=== PATIENT | female | born 1990 | race Caucasian/White ===

== ENCOUNTER 2019-04-01 08:57 | Emergency (ER) | payer BC, MEDICAID, OTHER ==
[2019-04-01] MEDS ORDERED: Ondansetron 4 MG Tab.DIS PO ONE (09:16)
--- NOTE | 2019-04-01 09:16 | EDM.PDOC ---
ED HPI GENERAL MEDICAL PROBLEM - General Stated Complaint: MIGRAINE Time Seen by Provider: 04/01/19 09:16 Source of Information: Reports: Patient History Limitations: Reports: No Limitations - History of Present Illness INITIAL COMMENTS - FREE TEXT/NARRATIVE: Patient has had migraines before her during her pregnancies. She did try Tylenol and caffeine. We did give her Zofran. We also gave her Percocet. She will use this sparingly. The migraine is behind her right eye. She did have to go off of her migraine medications when she got . Some nausea. Photophobia is noted. 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 Headache Pain Score (Numeric/FACES): 7 - Related Data Allergies Allergy/AdvReac Type Severity Reaction Status Date / Time amoxicillin Allergy Rash Verified 04/01/19 09:36 Penicillins Allergy Rash Verified 02/12/16 05:16 Home Meds: Home Meds ALPRAZolam [Xanax] 0.5 mg PO TID PRN 10/05/15 [History] Desvenlafaxine Succinate [Pristiq ER] 100 mg PO DAILY 04/01/19 [History] Labetalol HCl [Labetalol] 1 tab DAILY 04/01/19 [History] busPIRone HCl [busPIRone] 45 mg PO DAILY 04/01/19 [History] oxyCODONE HCl/Acetaminophen [Percocet 5-325 mg Tablet] 1 - 2 each PO Q4HR PRN # 10 tablet 04/01/19 [Rx] Past Medical History Cardiovascular History: Reports: Hypertension Respiratory History: Reports: None Genitourinary History: Reports: Renal Calculus, UTI, 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: Musculoskeletal History: Reports: Fracture Neurological History: Reports: Migraines Psychiatric History: Reports: Anxiety, Depression - Past Surgical History HEENT Surgical History: Reports: Oral Surgery Social & Family History - Family History Cardiac: Reports: [place] Other Cardiac Family History: FATHER HAD [place] 2003 Respiratory: Reports: COPD Other Respiratory Family Hisory: FATHER Neurological: Reports: [place] Other Neurological Family History: FATHER - Living Situation & Occupation Living situation: Reports: Single Occupation: Unemployed ED ROS GENERAL - Review of Systems Review Of Systems: ROS reveals no pertinent complaints other than HPI. - Physical Exam Exam: See Below Exam Limited By: No Limitations General Appearance: Alert Head Exam: Atraumatic Neck: Normal Inspection, Supple Respiratory/Chest: No Respiratory Distress, Lungs Clear, Normal Breath Sounds Cardiovascular: Normal Peripheral Pulses, Regular Rate, Rhythm, No Edema, No Gallop, No JVD, No Murmur, No Rub Psychiatric: Normal Affect Course - Vital Signs Last Recorded V/S: Last Vital Signs Temp 37.4 C 04/01/19 08:57 Pulse 96 04/01/19 08:57 Resp 16 04/01/19 08:57 BP 150/93 H 04/01/19 08:57 Pulse Ox 96 04/01/19 08:57 - Orders/Labs/Meds Meds: Medications Discontinued Medications Generic Name Dose Route Start Last Admin Trade Name Freq PRN Reason Stop Dose Admin Ondansetron HCl 8 mg 04/01/19 09:16 04/01/19 09:25 Zofran Odt PO 04/01/19 09:17 8 mg ONETIME ONE Administration Oxycodone/Acetaminophen 1 packet 04/01/19 09:32 04/01/19 09:40 Take Home: Acetamin/Oxycodon 325-5 Mg, 5 Pack PO 04/01/19 09:33 1 packet ONETIME ONE Administration Departure - Departure Time of Disposition: 09:28 Disposition: Home, Self-Care 01 Condition: Fair Clinical Impression: Migraine - Discharge Information *PRESCRIPTION DRUG MONITORING PROGRAM REVIEWED*: Yes *COPY OF PRESCRIPTION DRUG MONITORING REPORT IN PATIENT MONICA: No Prescriptions: oxyCODONE HCl/Acetaminophen [Percocet 5-325 mg Tablet] 1 - 2 each PO Q4HR PRN # 10 tablet PRN Reason: Pain Instructions: Migraine Headache, [id number] Referrals: Chas Snowden NP [Primary Care Provider] - Forms: ED Department Discharge Additional Instructions: Drink plenty of fluids. Get plenty of rest.
[2019-04-01] MEDS ORDERED: Take Home: Acetaminophen/oxyCODONE 325-5 MG, 5 Tab Pack PO ONE (09:32)
[2019-04-01 09:50] VITALS: BP 150/93
== END 2019-04-01 09:42 | disposition home or self-care (01) ==
LOC: VM.ED 08:57
DX: G43.909 Migraine, unspecified, not intractable, without status migrainosus (principal); I10 Essential (primary) hypertension; F41.9 Anxiety disorder, unspecified; F32.9 Major depressive disorder, single episode, unspecified; Z88.0 Allergy status to penicillin; Z88.1 Allergy status to other antibiotic agents; Z79.899 Other long term (current) drug therapy
CPT/HCPCS: 99283; A9270-GY

== ENCOUNTER 2019-08-18 16:59 | Emergency (ER) | payer MEDICAID ==
[2019-08-18] MEDS ORDERED: Sodium Chloride 0.9% 10 ML Syringe FLUSH PRN (17:25)
[2019-08-18] MEDS ORDERED: diphenhydrAMINE 50 MG/ML SDV IVPUSH ONE (17:26)
[2019-08-18] MEDS ORDERED: Metoclopramide 10 MG/2 ML SDV IVPUSH ONE (17:26)
[2019-08-18 17:33] VITALS: PULSE 92
--- NOTE | 2019-08-18 17:36 | EDM.PDOC ---
ED HPI GENERAL MEDICAL PROBLEM - General Stated Complaint: MIGRAINE Time Seen by Provider: 08/18/19 17:00 Source of Information: Reports: Patient History Limitations: Reports: No Limitations - History of Present Illness INITIAL COMMENTS - FREE TEXT/NARRATIVE: Pt. presents to ER with complaints of headache. She is currently 32 weeks gestation. . She states that she has had a frontal headache for approx. 3 days. She has a history of migraine and states that the discomfort is similar. She states that she has been taking imitrex and benadryl for the headache but states that this has not helped. According to her chart, she has had issues with PIH and is currently on labetolol 100mg BID and mag oxide 400mg once daily. Her BP during her last clinic visit (08/10) was 125/72. Her urine dip was protein negative. Pt. denies any chest pain or shortness of breath. No increased peripheral edema. She has vomited today. No vision changes. No increased peripheral edema. Onset Date: 08/15/19 Location: Reports: Head Quality: Reports: Ache, Throbbing Associated Symptoms: Reports: Nausea/Vomiting Headache Pain Score (Numeric/FACES): 7 - Related Data Allergies Allergy/AdvReac Type Severity Reaction Status Date / Time amoxicillin Allergy Rash Verified 08/18/19 17:53 Penicillins Allergy Rash Verified 08/18/19 17:53 Home Meds: Home Meds ALPRAZolam [Xanax] 0.5 mg PO TID PRN 10/05/15 [History] Desvenlafaxine Succinate [Pristiq ER] 50 mg PO DAILY 04/01/19 [History] Labetalol HCl [Labetalol] 1 tab PO BID 04/01/19 [History] Aspirin [Halfprin] 81 mg PO DAILY 08/18/19 [History] Magnesium Oxide 400 mg PO DAILY 08/18/19 [History] Pnv No.95/Ferrous Fum/Folic AC [ Caplet] 1 tab PO DAILY 08/18/19 [ History] SUMAtriptan [Imitrex] 25 mg PO Q2H 08/18/19 [History] diphenhydrAMINE [Benadryl] 25 mg PO ONETIME 08/18/19 [History] Past Medical History Cardiovascular History: Reports: Hypertension Respiratory History: Reports: None Genitourinary History: Reports: Renal Calculus, UTI, 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: Musculoskeletal History: Reports: Fracture Neurological History: Reports: Migraines Other Neuro History: gets Botox injections Psychiatric History: Reports: Anxiety, Depression - Past Surgical History HEENT Surgical History: Reports: Oral Surgery Social & Family History - Family History Cardiac: Reports: [place] Other Cardiac Family History: FATHER HAD [place] 2003 Respiratory: Reports: COPD Other Respiratory Family Hisory: FATHER Neurological: Reports: MS Other Neurological Family History: FATHER - Living Situation & Occupation Living situation: Reports: Single Occupation: Unemployed ED ROS GENERAL - Review of Systems Review Of Systems: See Below Constitutional: Reports: No Symptoms Respiratory: Reports: No Symptoms Cardiovascular: Reports: Blood Pressure Problem. Denies: Dyspnea on Exertion, Lightheadedness, Orthopnea, Palpitations, PND, Syncope Endocrine: Reports: No Symptoms GI/Abdominal: Reports: No Symptoms : Reports: No Symptoms Musculoskeletal: Reports: No Symptoms Skin: Reports: No Symptoms Neurological: Reports: Headache. Denies: Confusion, Dizziness, Numbness, Paresthesia, Tremors, Change in Speech, Gait Disturbance Psychiatric: Reports: No Symptoms Hematologic/Lymphatic: Reports: No Symptoms Immunologic: Reports: No Symptoms Free Text/Narrative/Comment: 32 weeks gestation ED EXAM, GENERAL - Physical Exam Exam: See Below Exam Limited By: No Limitations General Appearance: Alert, WD/WN, No Apparent Distress Eye Exam: Bilateral Eye: EOMI, Normal Fundi, Normal Inspection, PERRL Nose: Normal Inspection, No Blood Throat/Mouth: Normal Inspection, Normal Lips, Normal Oropharynx, Normal Voice, No Airway Compromise Head: Atraumatic, Normocephalic Neck: Normal Inspection, Supple, Non-Tender, Full Range of Motion Respiratory/Chest: No Respiratory Distress, Lungs Clear, Normal Breath Sounds, No Accessory Muscle Use, Chest Non-Tender Cardiovascular: Normal Peripheral Pulses, Regular Rate, Rhythm, No Edema, No Gallop, No JVD, No Murmur GI/Abdominal: Normal Bowel Sounds, Soft, Non-Tender, No Organomegaly, No Distention, No Mass (Female) Exam: Deferred Rectal (Female) Exam: Deferred Back Exam: Normal Inspection, Full Range of Motion Extremities: Normal Inspection, Normal Range of Motion, No Pedal Edema, Normal Capillary Refill Neurological: Alert, Oriented, CN II-XII Intact, Normal Cognition, Normal Gait, Normal Reflexes, No Motor/Sensory Deficits Psychiatric: Normal Affect, Normal Mood Skin Exam: Warm, Dry, Intact, Normal Color, No Rash Lymphatic: No Adenopathy Course - Vital Signs Last Recorded V/S: Last Vital Signs Temp 35.8 C 08/18/19 17:11 Pulse 92 08/18/19 17:11 Resp 18 08/18/19 17:11 BP 141/82 H 08/18/19 17:59 Pulse Ox 98 08/18/19 17:11 - Orders/Labs/Meds Orders: Active Orders 24 hr Category Date Time Status EKG Documentation Completion [RC] STAT Care 08/18/19 17:19 Inactive Heart Tones [RC] ASDIRECTED Care 08/18/19 17:20 Active Sodium Chloride 0.9% [Saline Flush] Med 08/18/19 17:25 Active 10 ml FLUSH ASDIRECTED PRN Peripheral IV Insertion Adult [OM.PC] Routine Oth 08/18/19 17:25 Ordered Medication Orders Sodium Chloride (Saline Flush) 10 ml FLUSH ASDIRECTED PRN PRN Reason: Keep Vein Open Last Admin: 08/18/19 17:41 Dose: 10 ml Labs: Laboratory Tests 08/18/19 08/18/19 08/18/19 Range/Units 17:15 17:30 17:30 WBC 8.5 (4.0-10.0) x10^3/uL RBC 3.63 L (4.00-5.50) x10^6/uL Hgb 11.8 L (12.0-16.0) g/dL Hct 34.0 (33.0-47.0) % MCV 93.7 H (78.0-93.0) fL MCH 32.5 H (26.0-32.0) pg MCHC 34.7 (32.0-36.0) g/dL RDW Coeff of Robert 12.7 (10.0-15.0) % Plt Count 229 (130-400) x10^3/uL Neut % (Auto) 76.0 (50.0-80.0) % Lymph % (Auto) 16.7 L (25.0-50.0) % [place] % (Auto) 6.5 (2.0-11.0) % Eos % (Auto) 0.4 (0.0-4.0) % Baso % (Auto) 0.4 (0.2-1.2) % PT 9.4 L (10.0-12.8) SEC INR 0.8 L (2.0-3.5) Sodium (69-191) mmol/L Potassium (1.5-9.9) mmol/L Chloride (54-184) mmol/L Carbon Dioxide (21-32) mmol/L Anion Gap (10-20) mmol/L BUN (7-18) mg/dL Creatinine (0.55-1.02) mg/dL Est Cr Clr Drug Dosing mL/min Estimated GFR (MDRD) Glucose (74-106) mg/dL Calcium (8.5-10.1) mg/dL Corrected Calcium (8.5-10.1) mg/dL Phosphorus (2.6-4.7) mg/dL Magnesium (1.8-2.4) mg/dL Total Bilirubin (0.2-1.0) mg/dL AST (15-37) U/L ALT (14-59) U/L Alkaline Phosphatase (46-116) U/L Lactate Dehydrogenase (81-234) U/L Troponin I (<=0.056) ng/mL C-Reactive Protein (<=0.9) mg/dL NT-Pro-B Natriuret Pep (<=125) pg/mL Total Protein (6.4-8.2) g/dL Albumin (3.4-5.0) g/dL Globulin Albumin/Globulin Ratio Urine Color Yellow (YELLOW) Urine Appearance Slightly cloudy H (CLEAR) Urine pH 7.0 (5.0-8.0) Ur Specific [place] 1.015 Urine Protein Negative (NEGATIVE) mg/dL Urine Glucose (UA) Negative (NEGATIVE) mg/dL Urine Ketones Negative (NEGATIVE) mg/dL Urine Occult Blood Negative (NEGATIVE) Urine Nitrite Negative (NEGATIVE) Urine Bilirubin Negative (NEGATIVE) Urine Urobilinogen 1.0 (0.2) EU/dL Ur Leukocyte Esterase Small H (NEGATIVE) Urine RBC 0-5 (NOT SEEN) /HPF Urine WBC 5-10 H (NOT SEEN) /HPF Ur Squamous Epith Cells Few H (NEGATIVE) /HPF Urine Bacteria Rare (NEGATIVE) /HPF Urine Mucus Occasional H (NEGATIVE) /LPF 11/02/19 Range/Units 17:30 WBC (4.0-10.0) x10^3/uL RBC (4.00-5.50) x10^6/uL Hgb (12.0-16.0) g/dL Hct (33.0-47.0) % MCV (78.0-93.0) fL MCH (26.0-32.0) pg MCHC (32.0-36.0) g/dL RDW Coeff of Robert (10.0-15.0) % Plt Count (130-400) x10^3/uL Neut % (Auto) (50.0-80.0) % Lymph % (Auto) (25.0-50.0) % [place] % (Auto) (2.0-11.0) % Eos % (Auto) (0.0-4.0) % Baso % (Auto) (0.2-1.2) % PT (10.0-12.8) SEC INR (2.0-3.5) Sodium 141 (69-191) mmol/L Potassium 3.9 (1.5-9.9) mmol/L Chloride 107 (54-184) mmol/L Carbon Dioxide 21 (21-32) mmol/L Anion Gap 16.9 (10-20) mmol/L BUN 5 L (7-18) mg/dL Creatinine 0.6 (0.55-1.02) mg/dL Est Cr Clr Drug Dosing 125.61 mL/min Estimated GFR (MDRD) > 60 Glucose 103 (74-106) mg/dL Calcium 8.1 L (8.5-10.1) mg/dL Corrected Calcium 9.30 (8.5-10.1) mg/dL Phosphorus 3.6 (2.6-4.7) mg/dL Magnesium 1.7 L (1.8-2.4) mg/dL Total Bilirubin 0.5 (0.2-1.0) mg/dL AST 19 (15-37) U/L ALT 18 (14-59) U/L Alkaline Phosphatase 123 H (46-116) U/L Lactate Dehydrogenase 188 (81-234) U/L Troponin I < 0.017 (<=0.056) ng/mL C-Reactive Protein < 0.2 (<=0.9) mg/dL NT-Pro-B Natriuret Pep 32 (<=125) pg/mL Total Protein 6.1 L (6.4-8.2) g/dL Albumin 2.5 L (3.4-5.0) g/dL Globulin 3.6 Albumin/Globulin Ratio 0.69 Urine Color (YELLOW) Urine Appearance (CLEAR) Urine pH (5.0-8.0) Ur Specific [place] Urine Protein (NEGATIVE) mg/dL Urine Glucose (UA) (NEGATIVE) mg/dL Urine Ketones (NEGATIVE) mg/dL Urine Occult Blood (NEGATIVE) Urine Nitrite (NEGATIVE) Urine Bilirubin (NEGATIVE) Urine Urobilinogen (0.2) EU/dL Ur Leukocyte Esterase (NEGATIVE) Urine RBC (NOT SEEN) /HPF Urine WBC (NOT SEEN) /HPF Ur Squamous Epith Cells (NEGATIVE) /HPF Urine Bacteria (NEGATIVE) /HPF Urine Mucus (NEGATIVE) /LPF Meds: Medications Generic Name Dose Route Start Last Admin Trade Name Freq PRN Reason Stop Dose Admin Sodium Chloride 10 ml 08/18/19 17:25 08/18/19 17:41 Saline Flush FLUSH 10 ml ASDIRECTED PRN Administration Keep Vein Open Discontinued Medications Generic Name Dose Route Start Last Admin Trade Name Freq PRN Reason Stop Dose Admin Diphenhydramine HCl 50 mg 08/18/19 17:26 08/18/19 17:41 Benadryl IVPUSH 08/18/19 17:27 50 mg ONETIME ONE Administration Sodium Chloride 1,000 mls @ 1,000 mls/hr 08/18/19 17:43 08/18/19 17:52 Normal Saline IV 08/18/19 18:42 1,000 mls/hr .BOLUS ONE Administration Metoclopramide HCl 5 mg 08/18/19 17:26 08/18/19 17:41 Reglan IVPUSH 08/18/19 17:27 5 mg ONETIME ONE Administration Departure - Departure Time of Disposition: 18:43 Disposition: Home, Self-Care 01 Clinical Impression: Migraine, induced hypertension - Discharge Information Instructions: Low-Sodium Eating Plan, Hypertension During Referrals: Chas Snowden NP [Primary Care Provider] - Forms: ED Department Discharge Additional Instructions: Home to rest. You need to be on strict bed rest. I will give your a note for work. Return to ER tomorrow for a recheck of your blood pressure. Continue with your current medications. Follow-up with your OB doctor early next week. Minimize intake of sodium/salty foods. Drink plenty of fluids. If you have worsening headache, blurred vision, vomiting, chest pain, shortness of breath, or other worrisome signs/symptoms, please return to ER. - Problem List Review Problem List Initiated/Reviewed/Updated: Yes - My Orders Last 24 Hours: My Active Orders 08/18/19 17:19 EKG Documentation Completion [RC] STAT 08/18/19 17:20 Heart Tones [RC] ASDIRECTED 08/18/19 17:25 Sodium Chloride 0.9% [Saline Flush] 10 ml FLUSH ASDIRECTED PRN Peripheral IV Insertion Adult [OM.PC] Routine - Assessment/Plan Last 24 Hours: My Active Orders 08/18/19 17:19 EKG Documentation Completion [RC] STAT 08/18/19 17:20 Heart Tones [RC] ASDIRECTED 08/18/19 17:25 Sodium Chloride 0.9% [Saline Flush] 10 ml FLUSH ASDIRECTED PRN Peripheral IV Insertion Adult [OM.PC] Routine Plan: IV access established. Pt. was given a liter of NS. She was given benadryl 50mg IV and reglan 10mg IV. She reported significant improvement in her symptoms. Pain was down to a 2-3 at time of discharge. Pt. had no proteinuria. She did have small LE in her urine, but is not symptomatic, so we will defer treating this. Pt. platelets, kidney function, LFTs, LDH and electrolytes are all within normal limits. Her BP was down to 140s over 80s at discharge. I spoke with Dr. Hillman, [facility] at [facility]. She advised bedrest and watchful waiting at this time. Pt. will return to ER tomorrow for repeat blood pressure check. No changes to medications or dosages at this time. Discussed bedrest with the patient. She can be up to the bathroom but no other activity. This was addressed in a note for her work. She was advised to return to ER if she developed worsening headache, vision changes, chest pain, abdominal pain, shortness of breath, or seizure activity. She should follow-up with her [employer] early next week. She was given a handout on DASH eating.
[2019-08-18] MEDS ORDERED: Sodium Chloride 0.9% 1,000 ML IV ONE (17:43)
[2019-08-18 17:59] VITALS: BP 141/82
[2019-08-18 18:07] LABS: CHLORIDE,CL 107 mmol/L (54-184); SODIUM,NA 141 mmol/L (69-191)
[2019-08-18 18:08] LABS: ANION GAP 16.9 mmol/L (10-20)
[2019-08-19] MEDS ORDERED: Labetalol 20 MG/4 ML Syringe IVPUSH ONE (16:42)
[2019-08-19] MEDS ORDERED: Sodium Chloride 0.9% 10 ML Syringe FLUSH PRN (16:42)
== END 2019-08-18 18:52 | disposition home or self-care (01) ==
LOC: VM.ED 16:59
DX: O99.353 Diseases of the nervous system complicating pregnancy, third trimester (principal); G43.909 Migraine, unspecified, not intractable, without status migrainosus; O16.3 Unspecified maternal hypertension, third trimester; O99.343 Other mental disorders complicating pregnancy, third trimester; F41.9 Anxiety disorder, unspecified; F32.9 Major depressive disorder, single episode, unspecified; Z88.0 Allergy status to penicillin; Z79.82 Long term (current) use of aspirin; Z79.899 Other long term (current) drug therapy; Z3A.32 32 weeks gestation of pregnancy
CPT/HCPCS: 36415; 80053; 81001; 83615; 83735; 83880; 84100; 84484; 85025; 85610; 86140; 96360; 99284-25; J1200; J2765; J7030

== ENCOUNTER 2019-08-19 16:20 | Emergency (ER) | payer MEDICAID ==
[2019-08-19] MEDS ORDERED: Labetalol 20 MG/4 ML Syringe IVPUSH ONE (16:46)
[2019-08-19] MEDS ORDERED: Sodium Chloride 0.9% 10 ML Syringe FLUSH PRN (16:46)
--- NOTE | 2019-08-19 17:01 | EDM.PDOC ---
ED HPI GENERAL MEDICAL PROBLEM - General Stated Complaint: ER VISIT Time Seen by Provider: 08/19/19 16:25 Source of Information: Reports: Patient History Limitations: Reports: No Limitations - History of Present Illness INITIAL COMMENTS - FREE TEXT/NARRATIVE: Pt. presents to ER for blood pressure recheck. She is currently 32 weeks gestation and has a history of PIH. She was seen in ER yesterday with migraine headache, which she has a history of. Her BP at that time was initially around 170/100. She was worked up and her headache was treated. She had no protein in her urine. Platelets, LFTs, kidney function and other studies were all within normal limits, and her BP improved to 140s/80s range. Her headache was also much improved. I spoke with Dr. Hillman who advised no changes to her medications. She has been on labetolol 100mg BID and mag oxide 400mg daily. Pt. was asked to return to ER today for BP recheck. Her BP on arrival to ER was in the 170/100 range several times. She is otherwise asymptomatic. Subsequently contacted [facility] and spoke with Dr. Heredia who advised patient be transferred to [facility] for further evaluation and care. He advised no lab testing today, as they will be repeating them and they were done yesterday, and he has no access to our EMR. Again, patient is asymptomatic and offers no complaint today. Her ER report from yesterday is attached. Onset: Today - Related Data Allergies Allergy/AdvReac Type Severity Reaction Status Date / Time amoxicillin Allergy Rash Verified 08/19/19 17:04 Penicillins Allergy Rash Verified 08/19/19 17:04 Home Meds: Home Meds ALPRAZolam [Xanax] 0.5 mg PO TID PRN 10/05/15 [History] Desvenlafaxine Succinate [Pristiq ER] 50 mg PO DAILY 04/01/19 [History] Labetalol HCl [Labetalol] 1 tab PO BID 04/01/19 [History] Aspirin [Halfprin] 81 mg PO DAILY 08/18/19 [History] Magnesium Oxide 400 mg PO DAILY 08/18/19 [History] Pnv No.95/Ferrous Fum/Folic AC [ Caplet] 1 tab PO DAILY 08/18/19 [ History] SUMAtriptan [Imitrex] 25 mg PO Q2H 08/18/19 [History] diphenhydrAMINE [Benadryl] 25 mg PO ONETIME 08/18/19 [History] Past Medical History Cardiovascular History: Reports: Hypertension Respiratory History: Reports: None Genitourinary History: Reports: Renal Calculus, UTI, 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: Musculoskeletal History: Reports: Fracture Neurological History: Reports: Migraines Other Neuro History: gets Botox injections Psychiatric History: Reports: Anxiety, Depression Dermatologic History: Reports: Eczema - Past Surgical History HEENT Surgical History: Reports: Oral Surgery Social & Family History - Family History Family Medical History: Noncontributory Cardiac: Reports: [place] Other Cardiac Family History: FATHER HAD [place] 2003 Respiratory: Reports: COPD Other Respiratory Family Hisory: FATHER Neurological: Reports: MS Other Neurological Family History: FATHER - Caffeine Use Caffeine Use: Reports: None - Living Situation & Occupation Living situation: Reports: Single Occupation: Unemployed ED ROS GENERAL - Review of Systems Review Of Systems: See Below Constitutional: Reports: No Symptoms HEENT: Reports: No Symptoms Respiratory: Reports: No Symptoms Cardiovascular: Reports: No Symptoms Endocrine: Reports: No Symptoms GI/Abdominal: Reports: No Symptoms : Reports: No Symptoms Musculoskeletal: Reports: No Symptoms Skin: Reports: No Symptoms Neurological: Reports: No Symptoms, Pre-Existing Deficit (PIH). Denies: Confusion, Dizziness, Headache, Numbness, Paresthesia, Tremors, Trouble Speaking , Difficulty Walking, Weakness, Change in Speech, Gait Disturbance Psychiatric: Reports: No Symptoms Hematologic/Lymphatic: Reports: No Symptoms Immunologic: Reports: No Symptoms ED EXAM, GENERAL - Physical Exam Exam: See Below General Appearance: Alert, WD/WN, No Apparent Distress, Anxious Throat/Mouth: Normal Inspection, Normal Lips, Normal Voice, No Airway Compromise Head: Atraumatic, Normocephalic Respiratory/Chest: No Respiratory Distress, Lungs Clear, Normal Breath Sounds, No Accessory Muscle Use, Chest Non-Tender Cardiovascular: Normal Peripheral Pulses, Regular Rate, Rhythm, No Edema, No Gallop, No JVD, No Murmur, No Rub Neurological: Alert, Oriented, CN II-XII Intact, Normal Cognition, Normal Gait, Normal Reflexes, No Motor/Sensory Deficits Course - Orders/Labs/Meds Orders: Active Orders 24 hr Category Date Time Status Sodium Chloride 0.9% [Saline Flush] Med 08/19/19 16:46 Active 10 ml FLUSH ASDIRECTED PRN Peripheral IV Insertion Adult [OM.PC] Routine Oth 08/19/19 16:46 Ordered Medication Orders Sodium Chloride (Saline Flush) 10 ml FLUSH ASDIRECTED PRN PRN Reason: Keep Vein Open Meds: Medications Generic Name Dose Route Start Last Admin Trade Name Freq PRN Reason Stop Dose Admin Sodium Chloride 10 ml 08/19/19 16:46 Saline Flush FLUSH ASDIRECTED PRN Keep Vein Open Discontinued Medications Generic Name Dose Route Start Last Admin Trade Name Freq PRN Reason Stop Dose Admin Labetalol HCl 20 mg 08/19/19 16:46 Normodyne IVPUSH 08/19/19 16:47 NOW ONE Protocol Departure - Departure Time of Disposition: 17:05 Disposition: DC/Tfer to [facility] 02 Clinical Impression: PIH ( induced hypertension) - Discharge Information Forms: Interfacility Transfer EMTALA - My Orders Last 24 Hours: My Active Orders 08/19/19 16:46 Sodium Chloride 0.9% [Saline Flush] 10 ml FLUSH ASDIRECTED PRN Peripheral IV Insertion Adult [OM.PC] Routine - Assessment/Plan Last 24 Hours: My Active Orders 08/19/19 16:46 Sodium Chloride 0.9% [Saline Flush] 10 ml FLUSH ASDIRECTED PRN Peripheral IV Insertion Adult [OM.PC] Routine Plan: Pt. will be transported to [facility]. Pt. was given Labetolol 20mg IV. Dr. Way advised against mag sulfate if her BP improves with labetalol. Pt. will be transported via [facility] ground ambulance. All questions were answered.
[2019-08-19 17:19] VITALS: BP 152/91; PULSE 92
== END 2019-08-19 17:40 | disposition short-term general hospital (02) ==
LOC: VM.ED 16:20
DX: O13.3 Gestational [pregnancy-induced] hypertension without significant proteinuria, third trimester (principal); O99.353 Diseases of the nervous system complicating pregnancy, third trimester; G43.909 Migraine, unspecified, not intractable, without status migrainosus; O99.343 Other mental disorders complicating pregnancy, third trimester; F41.9 Anxiety disorder, unspecified; F32.9 Major depressive disorder, single episode, unspecified; Z88.0 Allergy status to penicillin; Z3A.32 32 weeks gestation of pregnancy; Z79.899 Other long term (current) drug therapy; Z79.82 Long term (current) use of aspirin
CPT/HCPCS: 96374; 99283; J3490

== ENCOUNTER 2021-03-12 19:42 | Emergency (ER) | payer MEDICAID, OTHER, SELFPAY ==
[2021-03-12 20:09] VITALS: BP 130/88; PULSE 93
[2021-03-12] MEDS ORDERED: Albuterol 0.083% 2.5 MG/3 ML Neb Soln NEB ONE (20:30)
[2021-03-12 21:05] LABS: CHLORIDE,CL 104 mmol/L (98-107); SODIUM,NA 142 mmol/L (136-145)
[2021-03-12 21:07] LABS: ANION GAP 12.1 mmol/L (5-15)
[2021-03-12] MEDS ORDERED: Orphenadrine 60 MG/2 ML Inj IM STA (21:27)
--- NOTE | 2021-03-12 21:29 | EDM.PDOC ---
ED HPI GENERAL MEDICAL PROBLEM - General Chief Complaint: Chest Pain Stated Complaint: RESPIRATORY Time Seen by Provider: 03/12/21 19:50 Source of Information: Reports: Patient History Limitations: Reports: No Limitations - History of Present Illness INITIAL COMMENTS - FREE TEXT/NARRATIVE: Patient comes emergency department today with complaints of shortness of breath and pain in her chest with a deep breath. She relates most of this afternoon feels like she is not getting enough air. Like she has to try to take a big deep breath. When she is doing that as she is taking a deep breath she has some shooting midsternal chest pain. That resolves after she stops taking her breath. She has had no cough or congestion recently. No fever no chills. She has no pain when she is not taking a breath. She does not smoke currently she quit smoking about 5 years ago. She has had no recent falls or trauma to her chest. She denies any heartburn. No weakness dizziness lightheadedness. No syncope. No abdominal pain nausea or vomiting. No body aches malaise fatigue. No loss of taste or smell. No Covid exposure. She did try some Advil prior to arrival without improvement. 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 Chest Pain Score (Numeric/FACES): 2 - Related Data Allergies Allergy/AdvReac Type Severity Reaction Status Date / Time amoxicillin Allergy Rash Verified 08/19/19 17:04 Penicillins Allergy Rash Verified 08/19/19 17:04 Home Meds: Home Meds ALPRAZolam [Xanax] 0.5 mg PO TID PRN 10/05/15 [History] Desvenlafaxine Succinate [Pristiq ER] 50 mg PO DAILY 04/01/19 [History] Labetalol HCl [Labetalol] 1 tab PO BID 04/01/19 [History] Aspirin [Halfprin] 81 mg PO DAILY 08/18/19 [History] Magnesium Oxide 400 mg PO DAILY 08/18/19 [History] Pnv No.95/Ferrous Fum/Folic AC [ Caplet] 1 tab PO DAILY 08/18/19 [History] SUMAtriptan [Imitrex] 25 mg PO Q2H 08/18/19 [History] diphenhydrAMINE [Benadryl] 25 mg PO ONETIME 08/18/19 [History] Cyclobenzaprine [Flexeril] 10 mg PO TID PRN #12 tab 03/12/21 [Rx] Past Medical History Cardiovascular History: Reports: Hypertension Respiratory History: Reports: None Genitourinary History: Reports: Renal Calculus, UTI, 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: Musculoskeletal History: Reports: Fracture Neurological History: Reports: Migraines Other Neuro History: gets Botox injections Psychiatric History: Reports: Anxiety, Depression Dermatologic History: Reports: Eczema - Past Surgical History HEENT Surgical History: Reports: Oral Surgery Social & Family History - Family History Family Medical History: No Pertinent Family History Cardiac: Reports: [place] Other Cardiac Family History: FATHER HAD [place] 2003 Respiratory: Reports: COPD Other Respiratory Family Hisory: FATHER Neurological: Reports: [place] Other Neurological Family History: FATHER - Tobacco Use Tobacco Use Status *Q: Never Tobacco User Second Hand Smoke Exposure: No - Caffeine Use Caffeine Use: Reports: None - Recreational Drug Use Recreational Drug Use: No - Living Situation & Occupation Living situation: Reports: Single Occupation: Unemployed ED ROS GENERAL - Review of Systems Review Of Systems: Comprehensive ROS is negative, except as noted in HPI. ED EXAM, GENERAL - Physical Exam Exam: See Below Exam Limited By: No Limitations General Appearance: Alert, WD/WN, No Apparent Distress Eye Exam: Bilateral Eye: EOMI, PERRL Ears: Normal External Exam, Normal TMs Nose: Normal Inspection, Normal Mucosa Throat/Mouth: Normal Inspection, Normal Lips, Normal Oropharynx, Normal Voice Head: Atraumatic, Normocephalic Neck: Normal Inspection, Supple, Non-Tender, Full Range of Motion Respiratory/Chest: No Respiratory Distress, Lungs Clear, Normal Breath Sounds, No Accessory Muscle Use, Chest Non-Tender Cardiovascular: Normal Peripheral Pulses, Regular Rate, Rhythm Peripheral Pulses: 2+: Radial (L), Radial (R), Posterior Tibial (L), Posterior Tibial (R), Dorsalis Pedis (L), Dorsalis Pedis (R) GI/Abdominal: Normal Bowel Sounds, Soft (Female) Exam: Deferred Rectal (Female) Exam: Deferred Back Exam: Normal Inspection, Full Range of Motion Extremities: Normal Inspection, Normal Range of Motion, Non-Tender, No Pedal Edema, Normal Capillary Refill Neurological: Alert, Oriented, CN II-XII Intact, Normal Cognition, No Motor/Sensory Deficits Psychiatric: Normal Affect, Normal Mood Skin Exam: Warm, Dry, Intact, Normal Color Course - Vital Signs Last Recorded V/S: Last Vital Signs Temp 98.7 F 03/12/21 19:50 Pulse 93 03/12/21 19:50 Resp 18 03/12/21 19:50 BP 130/88 03/12/21 19:50 Pulse Ox 98 03/12/21 19:50 - Orders/Labs/Meds Orders: Active Orders 24 hr Category Date Time Status Chest 2V [CR] Urgent Exams 03/12/21 20:46 Taken Labs: Laboratory Tests 03/12/21 03/12/21 Range/Units 20:38 20:38 WBC 7.4 (4.0-10.0) x10^3/uL RBC 4.07 (4.00-5.50) x10^6/uL Hgb 12.8 (12.0-16.0) g/dL Hct 36.9 (33.0-47.0) % MCV 90.7 D (78.0-93.0) fL MCH 31.4 (26.0-32.0) pg MCHC 34.7 (32.0-36.0) g/dL RDW Coeff of Robert 12.8 (10.0-15.0) % Plt Count 255 (130-400) x10^3/uL Neut % (Auto) 68.3 (50.0-80.0) % Lymph % (Auto) 25.7 (25.0-50.0) % [place] % (Auto) 5.2 (2.0-11.0) % Eos % (Auto) 0.5 (0.0-4.0) % Baso % (Auto) 0.3 (0.2-1.2) % Sodium 142 (136-145) mmol/L Potassium 3.1 L (3.5-5.1) mmol/L Chloride 104 (98-107) mmol/L Carbon Dioxide 29 (21-32) mmol/L Anion Gap 12.1 (5-15) mmol/L BUN 9 (7-18) mg/dL Creatinine 0.7 (0.55-1.02) mg/dL Est Cr Clr Drug Dosing 105.74 mL/min Estimated GFR (MDRD) > 60 Glucose 114 H (70-99) mg/dL Calcium 8.7 (8.5-10.1) mg/dL Troponin I High Sens < 4 (<=51) ng/L Meds: Medications Discontinued Medications Generic Name Dose Route Start Last Admin Trade Name Freq PRN Reason Stop Dose Admin Albuterol 2.5 mg 03/12/21 20:30 03/12/21 20:37 Albuterol 0.083% 2.5 Mg/3 Ml Neb Soln NEB 03/12/21 20:31 2.5 mg ONETIME ONE Administration Orphenadrine Citrate 60 mg 03/12/21 21:27 03/12/21 21:38 Orphenadrine 60 Mg/2 Ml Inj IM 03/12/21 21:28 60 mg NOW STA Administration - Radiology Interpretation Free Text/Narrative:: Chest x-ray per radiology shows no active cardiopulmonary process. - Re-Assessments/Exams Free Text/Narrative Re-Assessment/Exam: EKG when reviewed extemporaneously by myself shows no ST elevation or depression with a normal sinus rhythm. Chest x-ray negative. Patient was given an albuterol nebulizer without any improvement of her symptoms. Laboratory evaluation with a normal CBC, CMP with a mildly low potassium at 3.1 normal kidney function. Troponin high-sensitivity negative at less than 4 This patient work-up is negative. Her symptoms are more indicative of costochondritis and/or pleurisy. She was given some Norflex. Although her chart relates that she has an aortic aneurysm she has no history of it according to the patient and reviewing the note from that day she was with flank pain and hematuria and I would assume that this was an accidental diagnosis placed as there was no mention of it or concern for it in the note. We will treat her symptomatically at this time. If she is not improving recheck with primary care. Discharge instructions as below are explained to the patient she was comfortable with this plan and her questions are answered. Departure - Departure Time of Disposition: 21:27 Disposition: Home, Self-Care 01 Clinical Impression: Costochondral chest pain Prescriptions: Cyclobenzaprine [Flexeril] 10 mg PO TID PRN #12 tab PRN Reason: Pain Instructions: Chest Wall Pain, [id number], Nonspecific Chest Pain, Adult, [id number] Referrals: Bernardo Powell MD [Primary Care Provider] - Forms: ED Department Discharge Additional Instructions: Ibuprofen 600mg three times a day as needed for pain. If pain not controlled with above. Flexeril 1 tablet three times a day as needed for pain. Caution sedation. RX sent to [facility]. Return to the ED if new or worsening symptoms. Follow up with primary care in the next 4-6 days if not improving sooner if worse. Sepsis Event Note (ED) - Evaluation Sepsis Screening Result: No Definite Risk - Focused Exam Vital Signs: Vital Signs Temp Pulse Resp BP Pulse Ox 03/12/21 19:50 98.7 F 93 18 130/88 98 - My Orders Last 24 Hours: My Active Orders 03/12/21 20:46 Chest 2V [CR] Urgent - Assessment/Plan Last 24 Hours: My Active Orders 03/12/21 20:46 Chest 2V [CR] Urgent
--- NOTE | 2021-03-13 03:19 | PCM.EKG ---
#1 Interpretation EKG Date: 03/13/21 Time: 08:13 Rhythm: NSR Rate (Beats/Min): 78 [place]: Normal P-Wave: Present QRS: Normal ST-T: Normal QT: Normal Comparison: NA - No Prior EKG
--- NOTE | 2021-03-13 11:27 | CR ---
[id number] RAD/RAD Chest PA And Lateral EXAM: FRONTAL AND LATERAL CHEST INDICATION: COMPLAINTS OF CHEST PAIN COMPARISON: None. DISCUSSION: Fusion of the left first and second anterior ribs. The lungs are clear. The heart is normal in size. No effusions. IMPRESSION: 1. No acute findings. Ruel Lugo MD 03/13/21 1126 Thank you for allowing us to participate in the care of your patient.
== END 2021-03-12 21:45 | disposition home or self-care (01) ==
LOC: VM.ED 19:42
DX: M94.0 Chondrocostal junction syndrome [Tietze] (principal); I10 Essential (primary) hypertension; Z88.0 Allergy status to penicillin
CPT/HCPCS: 36415; 71046; 80048; 84484; 85025; 93005; 96372; 99285-25; J2360; J7613-GY

== ENCOUNTER 2021-06-01 20:26 | Emergency (ER) | payer MEDICAID ==
[2021-06-01 20:55] VITALS: BP 142/90; PULSE 85
[2021-06-01] MEDS ORDERED: Acetaminophen/HYDROcodone 325-10 MG Tab PO ONE (20:57)
[2021-06-01 21:01] LABS: METHAMPHETAMINE SCREEN, URINE NEGATIVE (NEGATIVE); THC SCREEN,URINE 50 NG/ML NEGATIVE (NEGATIVE)
[2021-06-01 21:02] LABS: BUPRENORPHINE SCREEN,URINE NEGATIVE (NEGATIVE)
[2021-06-01 21:05] LABS: BARBITURATE SCREEN,URINE POSITIVE (NEGATIVE); BENZODIAZEPINES SCREEN,URINE POSITIVE (NEGATIVE)
--- NOTE | 2021-06-01 21:07 | EDM.PDOC ---
ED HPI GENERAL MEDICAL PROBLEM - General Chief Complaint: Back Pain or Injury Time Seen by Provider: 06/01/21 20:26 Source of Information: Reports: Patient History Limitations: Reports: No Limitations - History of Present Illness INITIAL COMMENTS - FREE TEXT/NARRATIVE: Pt. presents to ER with complaints of acute on chronic back pain. Pt. states that she started having pain this evening. She states that she has a history of "post covid syndrome" and attributes the discomfort to this. PCP is identified as Dr. Powell in [place]. Pt. states that the discomfort is in her lower back. Denies any current radicular symptoms, but she has recently had problems with peripheral neuropathy/weakness to both her upper and lower extremities intermittently, also attributed to covid. She has not had any imaging, EMG or neuro workup at this point, but she has an appointment with her PCP tomorrow. Pt. denies any fever or chills. No dysuria. No nausea or vomiting. Denies any chest pain or shortness or breath. Denies any lightheadedness. Pt. was seen in the ER at [facility] this past weekend with complaints of headache, malaise, and fatigue. Due to her myriad of symptoms, she was also given a referral to IM as the symptoms could be present in numerous etiologies other than post covid syndrome, particularly since she had covid over a month ago. No other workup/labs/imaging were performed at that visit. Pt. denies any acute back injury. Denies any recent calls. Denies any excessive lifting or bending. Pt. states that she took (2) 10mg cyclobenzaprine and (2) 0.5mg alprazolam, in addition to ibuprofen and tylenol before presenting to ER. Subsequently, acute treatment of her pain tonight will have to be conservative. She denies any current abdominal pain, nausea, vomiting, bloody/tarry stools, chest pain, shortness of breath, cough, chest congestion, sore throat, or lightheadedness. 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: Acetaminophen, Heat Therapy, NSAIDS, Other Medication(s) Other Treatments PIPE BOWLS PAINT TRIMMER: Alprazolam, cyclobenzaprine Lower Back Pain Score (Numeric/FACES): 9 - Related Data Allergies Allergy/AdvReac Type Severity Reaction Status Date / Time amoxicillin Allergy Rash Verified 08/19/19 17:04 Penicillins Allergy Rash Verified 08/19/19 17:04 Home Meds: Home Meds ALPRAZolam [Xanax] 0.5 mg PO TID PRN 10/05/15 [History] Desvenlafaxine Succinate [Pristiq ER] 50 mg PO DAILY 04/01/19 [History] Labetalol HCl [Labetalol] 1 tab PO BID 04/01/19 [History] Aspirin [Halfprin] 81 mg PO DAILY 08/18/19 [History] Magnesium Oxide 400 mg PO DAILY 08/18/19 [History] Pnv No.95/Ferrous Fum/Folic AC [ Caplet] 1 tab PO DAILY 08/18/19 [History] SUMAtriptan [Imitrex] 25 mg PO Q2H 08/18/19 [History] diphenhydrAMINE [Benadryl] 25 mg PO ONETIME 08/18/19 [History] Cyclobenzaprine [Flexeril] 10 mg PO TID PRN #12 tab 03/12/21 [Rx] Past Medical History Cardiovascular History: Reports: Hypertension Respiratory History: Reports: None Genitourinary History: Reports: Renal Calculus, UTI, 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: Musculoskeletal History: Reports: Fracture Neurological History: Reports: Migraines Other Neuro History: gets Botox injections Psychiatric History: Reports: Anxiety, Depression Dermatologic History: Reports: Eczema - Past Surgical History HEENT Surgical History: Reports: Oral Surgery Social & Family History - Family History Family Medical History: No Pertinent Family History Cardiac: Reports: [place] Other Cardiac Family History: FATHER HAD [place] 2003 Respiratory: Reports: COPD Other Respiratory Family Hisory: FATHER Neurological: Reports: [place] Other Neurological Family History: FATHER - Caffeine Use Caffeine Use: Reports: None - Living Situation & Occupation Living situation: Reports: Single Occupation: Unemployed ED ROS GENERAL - Review of Systems Review Of Systems: See Below Constitutional: Reports: Malaise, Weakness, Fatigue, Other (See HPI). Denies: Fever, Chills HEENT: Reports: No Symptoms Respiratory: Reports: No Symptoms Cardiovascular: Reports: No Symptoms Endocrine: Reports: No Symptoms GI/Abdominal: Reports: No Symptoms. Denies: Black Stool, Bloody Stool, Diarrhea, Distension, Hematemesis, Hematochezia : Reports: No Symptoms Musculoskeletal: Reports: Back Pain Skin: Reports: No Symptoms Neurological: Reports: No Symptoms Psychiatric: Reports: No Symptoms Hematologic/Lymphatic: Reports: No Symptoms Immunologic: Reports: No Symptoms ED EXAM, GENERAL - Physical Exam Exam: See Below Exam Limited By: No Limitations General Appearance: Alert, WD/WN, Anxious, Mild Distress Eye Exam: Bilateral Eye: EOMI Nose: Normal Inspection, Normal Mucosa Head: Atraumatic, Normocephalic Neck: Normal Inspection, Non-Tender, Full Range of Motion Respiratory/Chest: No Respiratory Distress, Lungs Clear, Normal Breath Sounds, No Accessory Muscle Use, Chest Non-Tender Cardiovascular: Normal Peripheral Pulses, Regular Rate, Rhythm, No Edema, No JVD, No Murmur, No Rub Peripheral Pulses: 4+: Radial (R) GI/Abdominal: Soft, Non-Tender, No Organomegaly, No Distention, No Abnormal Bruit, No Mass, Pelvis Stable (Female) Exam: Deferred Rectal (Female) Exam: Deferred Back Exam: Normal Inspection, Decreased Range of Motion, Other (Pain with flexion) Extremities: Normal Inspection, Normal Range of Motion, Non-Tender, No Pedal Edema, Normal Capillary Refill Neurological: Alert, Oriented, CN II-XII Intact, Normal Cognition, Normal Gait, No Motor/Sensory Deficits, Other (Pt. endorses problem with memory. No pronator drift noted. 5/5 strength in upper and lower extremities. No problems with speech/ambulation. No vision loss or change.) Psychiatric: Normal Affect, Normal Mood Skin Exam: Warm, Dry, Intact, Normal Color, No Rash Course - Vital Signs Last Recorded V/S: Last Vital Signs Temp 37.4 C 06/01/21 20:26 Pulse 85 06/01/21 20:26 Resp 18 06/01/21 20:26 BP 142/90 H 06/01/21 20:26 Pulse Ox 99 06/01/21 20:26 - Orders/Labs/Meds Labs: Laboratory Tests 06/01/21 06/01/21 06/01/21 Range/Units 20:51 20:51 20:51 WBC (4.0-10.0) x10^3/uL RBC (4.00-5.50) x10^6/uL Hgb (12.0-16.0) g/dL Hct (33.0-47.0) % MCV (78.0-93.0) fL MCH (26.0-32.0) pg MCHC (32.0-36.0) g/dL RDW Coeff of Robert (10.0-15.0) % Plt Count (130-400) x10^3/uL Neut % (Auto) (50.0-80.0) % Lymph % (Auto) (25.0-50.0) % [place] % (Auto) (2.0-11.0) % Eos % (Auto) (0.0-4.0) % Baso % (Auto) (0.2-1.2) % PT (9.9-12.5) SEC INR (2.0-3.5) APTT (25.6-32.8) SEC Sodium (136-145) mmol/L Potassium (3.5-5.1) mmol/L Chloride (98-107) mmol/L Carbon Dioxide (21-32) mmol/L Anion Gap (5-15) mmol/L BUN (7-18) mg/dL Creatinine (0.55-1.02) mg/dL Est Cr Clr Drug Dosing mL/min Estimated GFR (MDRD) Glucose (70-99) mg/dL Calcium (8.5-10.1) mg/dL Corrected Calcium (8.5-10.1) mg/dL Phosphorus (2.6-4.7) mg/dL Magnesium (1.8-2.4) mg/dL Total Bilirubin (0.2-1.0) mg/dL AST (15-37) U/L ALT (14-59) U/L Alkaline Phosphatase (46-116) U/L Creatine Kinase (26-192) U/L C-Reactive Protein (<=0.9) mg/dL Total Protein (6.4-8.2) g/dL Albumin (3.4-5.0) g/dL Globulin Albumin/Globulin Ratio Urine Color Yellow (YELLOW) Urine Appearance Slightly cloudy H (CLEAR) Urine pH 6.0 (5.0-8.0) Ur Specific [place] >=1.030 Urine Protein Trace H (NEGATIVE) mg/dL Urine Glucose (UA) Negative (NEGATIVE) mg/dL Urine Ketones 40 H (NEGATIVE) mg/dL Urine Occult Blood Trace-intact H (NEGATIVE) Urine Nitrite Negative (NEGATIVE) Urine Bilirubin Small H (NEGATIVE) Urine Urobilinogen 0.2 (0.2) EU/dL Ur Leukocyte Esterase Negative (NEGATIVE) Urine RBC 5-10 H (NOT SEEN) /HPF Urine WBC 0-5 (NOT SEEN) /HPF Ur Squamous Epith Cells Moderate H (NOT SEEN) /HPF Urine Bacteria Occasional H (NOT SEEN) /HPF Urine Mucus Moderate H (NOT SEEN) /LPF Urine HCG, Qual Negative (NEGATIVE) Urine Opiates Screen Negative (NEGATIVE) Ur Buprenorphine Scrn Negative (NEGATIVE) Ur Oxycodone Screen Negative (NEGATIVE) Urine Methadone Screen Negative (NEGATIVE) Ur Barbiturates Screen Positive H (NEGATIVE) Ur Phencyclidine Scrn Negative (NEGATIVE) Ur Amphetamine Screen Positive H (NEGATIVE) U Methamphetamines Scrn Negative (NEGATIVE) Urine MDMA Screen Negative (NEGATIVE) U Benzodiazepines Scrn Positive H (NEGATIVE) U Cocaine Metab Screen Negative (NEGATIVE) U Marijuana (THC) Screen Negative (NEGATIVE) Lyme Disease DNA (PCR) (Negative) 06/01/21 06/01/21 06/01/21 Range/Units 20:53 20:53 20:53 WBC 6.4 (4.0-10.0) x10^3/uL RBC 4.18 (4.00-5.50) x10^6/uL Hgb 13.5 (12.0-16.0) g/dL Hct 38.2 (33.0-47.0) % MCV 91.4 (78.0-93.0) fL MCH 32.3 H (26.0-32.0) pg MCHC 35.3 (32.0-36.0) g/dL RDW Coeff of Robert 13.6 (10.0-15.0) % Plt Count 275 (130-400) x10^3/uL Neut % (Auto) 66.6 (50.0-80.0) % Lymph % (Auto) 27.8 (25.0-50.0) % [place] % (Auto) 5.0 (2.0-11.0) % Eos % (Auto) 0.3 (0.0-4.0) % Baso % (Auto) 0.3 (0.2-1.2) % PT 11.2 (9.9-12.5) SEC INR 1.0 L (2.0-3.5) APTT (25.6-32.8) SEC Sodium 143 (136-145) mmol/L Potassium 3.2 L (3.5-5.1) mmol/L Chloride 106 (98-107) mmol/L Carbon Dioxide 23 (21-32) mmol/L Anion Gap 17.2 H (5-15) mmol/L BUN 17 (7-18) mg/dL Creatinine 0.6 (0.55-1.02) mg/dL Est Cr Clr Drug Dosing 123.37 mL/min Estimated GFR (MDRD) > 60 Glucose 128 H (70-99) mg/dL Calcium 8.4 L (8.5-10.1) mg/dL Corrected Calcium 8.3 L (8.5-10.1) mg/dL Phosphorus 3.1 (2.6-4.7) mg/dL Magnesium 1.9 (1.8-2.4) mg/dL Total Bilirubin 0.4 (0.2-1.0) mg/dL AST < 10 L (15-37) U/L ALT 19 (14-59) U/L Alkaline Phosphatase 47 (46-116) U/L Creatine Kinase (26-192) U/L C-Reactive Protein < 0.2 (<=0.9) mg/dL Total Protein 6.8 (6.4-8.2) g/dL Albumin 4.1 (3.4-5.0) g/dL Globulin 2.7 Albumin/Globulin Ratio 1.52 Urine Color (YELLOW) Urine Appearance (CLEAR) Urine pH (5.0-8.0) Ur Specific [place] Urine Protein (NEGATIVE) mg/dL Urine Glucose (UA) (NEGATIVE) mg/dL Urine Ketones (NEGATIVE) mg/dL Urine Occult Blood (NEGATIVE) Urine Nitrite (NEGATIVE) Urine Bilirubin (NEGATIVE) Urine Urobilinogen (0.2) EU/dL Ur Leukocyte Esterase (NEGATIVE) Urine RBC (NOT SEEN) /HPF Urine WBC (NOT SEEN) /HPF Ur Squamous Epith Cells (NOT SEEN) /HPF Urine Bacteria (NOT SEEN) /HPF Urine Mucus (NOT SEEN) /LPF Urine HCG, Qual (NEGATIVE) Urine Opiates Screen (NEGATIVE) Ur Buprenorphine Scrn (NEGATIVE) Ur Oxycodone Screen (NEGATIVE) Urine Methadone Screen (NEGATIVE) Ur Barbiturates Screen (NEGATIVE) Ur Phencyclidine Scrn (NEGATIVE) Ur Amphetamine Screen (NEGATIVE) U Methamphetamines Scrn (NEGATIVE) Urine MDMA Screen (NEGATIVE) U Benzodiazepines Scrn (NEGATIVE) U Cocaine Metab Screen (NEGATIVE) U Marijuana (THC) Screen (NEGATIVE) Lyme Disease DNA (PCR) (Negative) 06/01/21 06/01/21 06/01/21 Range/Units 20:53 20:53 20:53 WBC (4.0-10.0) x10^3/uL RBC (4.00-5.50) x10^6/uL Hgb (12.0-16.0) g/dL Hct (33.0-47.0) % MCV (78.0-93.0) fL MCH (26.0-32.0) pg MCHC (32.0-36.0) g/dL RDW Coeff of Robert (10.0-15.0) % Plt Count (130-400) x10^3/uL Neut % (Auto) (50.0-80.0) % Lymph % (Auto) (25.0-50.0) % [place] % (Auto) (2.0-11.0) % Eos % (Auto) (0.0-4.0) % Baso % (Auto) (0.2-1.2) % PT (9.9-12.5) SEC INR (2.0-3.5) APTT 26.1 (25.6-32.8) SEC Sodium (136-145) mmol/L Potassium (3.5-5.1) mmol/L Chloride (98-107) mmol/L Carbon Dioxide (21-32) mmol/L Anion Gap (5-15) mmol/L BUN (7-18) mg/dL Creatinine (0.55-1.02) mg/dL Est Cr Clr Drug Dosing mL/min Estimated GFR (MDRD) Glucose (70-99) mg/dL Calcium (8.5-10.1) mg/dL Corrected Calcium (8.5-10.1) mg/dL Phosphorus (2.6-4.7) mg/dL Magnesium (1.8-2.4) mg/dL Total Bilirubin (0.2-1.0) mg/dL AST (15-37) U/L ALT (14-59) U/L Alkaline Phosphatase (46-116) U/L Creatine Kinase 38 (26-192) U/L C-Reactive Protein (<=0.9) mg/dL Total Protein (6.4-8.2) g/dL Albumin (3.4-5.0) g/dL Globulin Albumin/Globulin Ratio Urine Color (YELLOW) Urine Appearance (CLEAR) Urine pH (5.0-8.0) Ur Specific [place] Urine Protein (NEGATIVE) mg/dL Urine Glucose (UA) (NEGATIVE) mg/dL Urine Ketones (NEGATIVE) mg/dL Urine Occult Blood (NEGATIVE) Urine Nitrite (NEGATIVE) Urine Bilirubin (NEGATIVE) Urine Urobilinogen (0.2) EU/dL Ur Leukocyte Esterase (NEGATIVE) Urine RBC (NOT SEEN) /HPF Urine WBC (NOT SEEN) /HPF Ur Squamous Epith Cells (NOT SEEN) /HPF Urine Bacteria (NOT SEEN) /HPF Urine Mucus (NOT SEEN) /LPF Urine HCG, Qual (NEGATIVE) Urine Opiates Screen (NEGATIVE) Ur Buprenorphine Scrn (NEGATIVE) Ur Oxycodone Screen (NEGATIVE) Urine Methadone Screen (NEGATIVE) Ur Barbiturates Screen (NEGATIVE) Ur Phencyclidine Scrn (NEGATIVE) Ur Amphetamine Screen (NEGATIVE) U Methamphetamines Scrn (NEGATIVE) Urine MDMA Screen (NEGATIVE) U Benzodiazepines Scrn (NEGATIVE) U Cocaine Metab Screen (NEGATIVE) U Marijuana (THC) Screen (NEGATIVE) Lyme Disease DNA (PCR) Negative (Negative) Meds: Medications Discontinued Medications Generic Name Dose Route Start Last Admin Trade Name Freq PRN Reason Stop Dose Admin Hydrocodone Bitart/Acetaminophen 1 tab 06/01/21 20:57 06/01/21 21:05 Acetaminophen/Hydrocodone 325-10 Mg Tab PO 06/01/21 20:58 1 tab ONETIME ONE Administration Hydrocodone Bitart/Acetaminophen 1 packet 06/01/21 21:36 06/01/21 21:57 Take Home: Acetaminophen/Hydrocodone 325-5 Mg, 5 Tab Pack PO 06/01/21 21:37 1 packet ONETIME ONE Administration Departure - Departure Time of Disposition: 22:00 Disposition: Home, Self-Care 01 Clinical Impression: Dehydration - Discharge Information Instructions: Acute Back Pain, Adult, Dehydration, Adult, [id number] Referrals: Bernardo Powell MD [Primary Care Provider] - Forms: ED Department Discharge Additional Instructions: [place] 5/325mg 1 every 4-6 hours PRN pain Do not take tylenol when taking this medication. You can still take ibuprofen. Follow-up with Dr. Powell tomorrow for further workup. I will let you know the results of your Lyme workup. Increase intake of water. I would avoid taking any more muscle relaxers or alprazolam tonight.
[2021-06-01 21:24] LABS: CHLORIDE,CL 106 mmol/L (98-107); SODIUM,NA 143 mmol/L (136-145)
[2021-06-01 21:26] LABS: ANION GAP 17.2 mmol/L (5-15)
[2021-06-01] MEDS ORDERED: Take Home: Acetaminophen/HYDROcodone 325-5 MG, 5 Tab Pack PO ONE (21:36)
== END 2021-06-01 21:58 | disposition home or self-care (01) ==
LOC: VM.ED 20:26
DX: E86.0 Dehydration (principal); I10 Essential (primary) hypertension; Z88.0 Allergy status to penicillin; Z79.82 Long term (current) use of aspirin
CPT/HCPCS: 36415; 80053; 80305-QW; 81001; 81025; 82550; 83735; 84100; 85025; 85610; 85730; 86140; 87476; 99283; 99284; A9270-GY

== ENCOUNTER 2021-06-21 00:43 | Emergency (ER) | payer MEDICAID ==
[2021-06-21] MEDS ORDERED: Sodium Chloride 0.9% 10 ML Syringe FLUSH PRN (00:52)
[2021-06-21] MEDS ORDERED: Ketamine 200 MG/20 ML MDV IVPUSH ONE (00:52)
--- NOTE | 2021-06-21 01:55 | EDM.PDOC ---
ED HPI GENERAL MEDICAL PROBLEM - General Chief Complaint: General Stated Complaint: Left arm pain, pain to extremities, post COVID Time Seen by Provider: 06/21/21 00:43 Source of Information: Reports: Patient History Limitations: Reports: No Limitations - History of Present Illness INITIAL COMMENTS - FREE TEXT/NARRATIVE: Pt. presents to ER with complaints of chronic pain, most significantly in L arm and legs. She has been diagnosed with post covid syndrome and is currently being worked up by her PCP, Dr. Powell in [place], and is scheduled to see neurology in mid Jul. She has had an MRI of her brain which was negative. She is on hydrocodone, states that this has not been helping at all. She also took a dose of baclofen, has not helped either. In clinic, Dr. Powell and done CMP, CBC, JENS, sed rate and CRP, and TSH all of which were within normal limits. She had a similar workup in ER shortly before this follow-up visit. Scheduled it sounds like for an EMG as well. Pt. denies any acute pain. No recent trauma. Denies any fever or chills. No nausea or vomiting. She does complain of a headache. Onset: Today Onset Date: 06/21/21 Location: Reports: Head, Upper Extremity, Left, Lower Extremity, Left, Lower Extremity, Right, Generalized Quality: Reports: Ache, Burning, Stabbing Severity: Severe - Related Data Allergies Allergy/AdvReac Type Severity Reaction Status Date / Time amoxicillin Allergy Rash Verified 06/21/21 01:15 Penicillins Allergy Rash Verified 06/21/21 01:15 Home Meds: Home Meds ALPRAZolam [Xanax] 0.5 mg PO TID PRN 10/05/15 [History] Desvenlafaxine Succinate [Pristiq ER] 50 mg PO DAILY 04/01/19 [History] Labetalol HCl [Labetalol] 1 tab PO BID 04/01/19 [History] Aspirin [Halfprin] 81 mg PO DAILY 08/18/19 [History] Magnesium Oxide 400 mg PO DAILY 08/18/19 [History] Pnv No.95/Ferrous Fum/Folic AC [ Caplet] 1 tab PO DAILY 08/18/19 [History] SUMAtriptan [Imitrex] 25 mg PO Q2H 08/18/19 [History] diphenhydrAMINE [Benadryl] 25 mg PO ONETIME 08/18/19 [History] Cyclobenzaprine [Flexeril] 10 mg PO TID PRN #12 tab 03/12/21 [Rx] Past Medical History Cardiovascular History: Reports: Hypertension Respiratory History: Reports: None Genitourinary History: Reports: Renal Calculus, UTI, Recurrent JIG HAND History: Reports: Musculoskeletal History: Reports: Fracture Neurological History: Reports: Migraines Other Neuro History: gets Botox injections Psychiatric History: Reports: Anxiety, Depression Dermatologic History: Reports: Eczema - Past Surgical History HEENT Surgical History: Reports: Oral Surgery Social & Family History - Family History Family Medical History: No Pertinent Family History Cardiac: Reports: [place] Other Cardiac Family History: FATHER HAD [place] 2003 Respiratory: Reports: COPD Other Respiratory Family Hisory: FATHER Neurological: Reports: MS Other Neurological Family History: FATHER - Caffeine Use Caffeine Use: Reports: None - Living Situation & Occupation Living situation: Reports: Single Occupation: Unemployed ED ROS GENERAL - Review of Systems Review Of Systems: See Below Constitutional: Reports: Malaise, Fatigue. Denies: Fever, Chills, Weakness, Diaphoresis HEENT: Reports: No Symptoms Respiratory: Reports: No Symptoms Cardiovascular: Reports: No Symptoms Endocrine: Reports: Fatigue GI/Abdominal: Reports: No Symptoms : Reports: No Symptoms Musculoskeletal: Reports: Arm Pain, Leg Pain Skin: Reports: No Symptoms Neurological: Reports: No Symptoms Psychiatric: Reports: No Symptoms Hematologic/Lymphatic: Reports: No Symptoms Immunologic: Reports: No Symptoms ED EXAM, GENERAL - Physical Exam Exam: See Below Exam Limited By: No Limitations General Appearance: Alert, WD/WN, No Apparent Distress Eye Exam: Bilateral Eye: EOMI, PERRL Head: Atraumatic, Normocephalic Neck: Normal Inspection, Supple, Non-Tender, Full Range of Motion Respiratory/Chest: No Respiratory Distress, Lungs Clear, Normal Breath Sounds, No Accessory Muscle Use, Chest Non-Tender Cardiovascular: Normal Peripheral Pulses, Regular Rate, Rhythm, No Edema, No JVD, No Murmur GI/Abdominal: Soft, Non-Tender, No Organomegaly, No Distention (Female) Exam: Deferred Rectal (Female) Exam: Deferred Back Exam: Normal Inspection, Full Range of Motion Extremities: Normal Inspection, Normal Range of Motion, Non-Tender, No Pedal Edema, Normal Capillary Refill, Other (No duskiness) Neurological: Alert, Oriented, CN II-XII Intact, Normal Cognition, Normal Gait, Normal Reflexes, No Motor/Sensory Deficits, Other (neuropathic pain, thought to be post covid) Psychiatric: Normal Affect, Normal Mood Skin Exam: Warm, Dry, Intact, Normal Color, No Rash Lymphatic: No Adenopathy Course - Orders/Labs/Meds Orders: Active Orders 24 hr Category Date Time Status Sodium Chloride 0.9% [Saline Flush] Med 06/21/21 00:52 Active 10 ml FLUSH ASDIRECTED PRN Saline Lock Insert [OM.PC] Routine Oth 06/21/21 00:52 Ordered Medication Orders Sodium Chloride (Sodium Chloride 0.9% 10 Ml Syringe) 10 ml FLUSH ASDIRECTED PRN PRN Reason: Keep Vein Open Meds: Medications Generic Name Dose Route Start Last Admin Trade Name Freq PRN Reason Stop Dose Admin Sodium Chloride 10 ml 06/21/21 00:52 Sodium Chloride 0.9% 10 Ml Syringe FLUSH ASDIRECTED PRN Keep Vein Open Discontinued Medications Generic Name Dose Route Start Last Admin Trade Name Freq PRN Reason Stop Dose Admin Ketamine HCl 15 mg 06/21/21 00:52 Ketamine 200 Mg/20 Ml Mdv IVPUSH 06/21/21 00:53 ONETIME ONE - Re-Assessments/Exams Free Text/Narrative Re-Assessment/Exam: Pt. was given ketamine 10 mg slow IV push. She reported significant improvement in discomfort. Initially planned to give 15 mg but administration was stopped at 10mg due to patient complaint/dissociative response to medication. She was observed. Reported near resolution in discomfort, and requesting to be discharged to go home and sleep. She was monitored for almost an hour with pulse oximetry. Departure - Departure Time of Disposition: 02:00 Disposition: Home, Self-Care 01 Clinical Impression: Post-COVID chronic neurologic symptoms - Discharge Information Instructions: Neuropathic Pain Forms: ED Department Discharge Additional Instructions: Home to rest. Continue with current medications as prescribed. We will have pain management contact your regarding an appointment as well. - Problem List Review Problem List Initiated/Reviewed/Updated: Yes - My Orders Last 24 Hours: My Active Orders 06/21/21 00:52 Sodium Chloride 0.9% [Saline Flush] 10 ml FLUSH ASDIRECTED PRN Saline Lock Insert [OM.PC] Routine - Assessment/Plan Last 24 Hours: My Active Orders 06/21/21 00:52 Sodium Chloride 0.9% [Saline Flush] 10 ml FLUSH ASDIRECTED PRN Saline Lock Insert [OM.PC] Routine Plan: Pt. was discharged. Discussed use of ketamine in acute and chronic pain. She was reassured that the dose being given is a fraction of what would be used for conscious sedation/rapid sequence intubation. Advised that she should continue with her current medications as prescribed. Often patients have a few days or more of relief of neuropathic pain with sub-dissociative doses of ketamine, but this is not always the case. Pt. will be given a referral to our pain management department who uses ketamine extensively for chronic pain. If she has further pain this weekend not amenable to her oral meds, she can return to ER for subsequent dose of medication.
[2021-06-21 05:53] VITALS: BP 148/99; PULSE 96
== END 2021-06-21 01:34 | disposition home or self-care (01) ==
LOC: VM.ED 00:43
DX: R29.90 Unspecified symptoms and signs involving the nervous system (principal); Z88.0 Allergy status to penicillin; Z79.82 Long term (current) use of aspirin; Z86.16 Personal history of COVID-19
CPT/HCPCS: 96374; 99283-25; 99284

== ENCOUNTER 2021-07-19 18:55 | Emergency (ER) | payer MEDICAID ==
[2021-07-19] MEDS ORDERED: Ketorolac 30 MG/ML SDV IM ONE (19:52)
--- NOTE | 2021-07-19 21:27 | EDM.PDOC ---
ED HPI GENERAL MEDICAL PROBLEM - General Stated Complaint: PAIN Time Seen by Provider: 07/19/21 19:35 Source of Information: Reports: Patient History Limitations: Reports: No Limitations - History of Present Illness INITIAL COMMENTS - FREE TEXT/NARRATIVE: Pt. presents to ER with complaints of acute on chronic low back pain. Pt. has a longstanding history of chronic low back pain. She was seen earlier in the day at [facility] for the same. She states that she was given an injection of Morphine at that time. She states that the pain now is a "15" on a 1-10 scale. Pt. denies any recent trauma. No incontinence or retention. Denies any saddle anesthesia or other red flag symptoms. Pt. is on fioricet but states that this does not help the discomfort. She is also on flexeril. She is a patient of Dr. Powell. Location: Reports: Back - Related Data Allergies Allergy/AdvReac Type Severity Reaction Status Date / Time amoxicillin Allergy Rash Verified 06/21/21 05:54 Penicillins Allergy Rash Verified 06/21/21 05:54 Home Meds: Home Meds ALPRAZolam [Xanax] 0.5 mg PO TID PRN 10/05/15 [History] Desvenlafaxine Succinate [Pristiq ER] 50 mg PO DAILY 04/01/19 [History] Labetalol HCl [Labetalol] 1 tab PO BID 04/01/19 [History] Aspirin [Halfprin] 81 mg PO DAILY 08/18/19 [History] Magnesium Oxide 400 mg PO DAILY 08/18/19 [History] Pnv No.95/Ferrous Fum/Folic AC [ Caplet] 1 tab PO DAILY 08/18/19 [History] SUMAtriptan [Imitrex] 25 mg PO Q2H 08/18/19 [History] diphenhydrAMINE [Benadryl] 25 mg PO ONETIME 08/18/19 [History] Cyclobenzaprine [Flexeril] 10 mg PO TID PRN #12 tab 03/12/21 [Rx] Past Medical History Cardiovascular History: Reports: Hypertension Respiratory History: Reports: None Genitourinary History: Reports: Renal Calculus, UTI, 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: Musculoskeletal History: Reports: Fracture, Other (See Below) Other Musculoskeletal History: Post COVID syndrome, chronic pain, extremities since having COVID, neuropathy like pain Neurological History: Reports: Migraines Other Neuro History: gets Botox injections Psychiatric History: Reports: Anxiety, Depression Dermatologic History: Reports: Eczema - Past Surgical History HEENT Surgical History: Reports: Oral Surgery Social & Family History - Family History Family Medical History: No Pertinent Family History Cardiac: Reports: [place] Other Cardiac Family History: FATHER HAD [place] 2003 Respiratory: Reports: COPD Other Respiratory Family Hisory: FATHER Neurological: Reports: MS Other Neurological Family History: FATHER - Caffeine Use Caffeine Use: Reports: None - Living Situation & Occupation Living situation: Reports: Single Occupation: Unemployed ED ROS GENERAL - Review of Systems Review Of Systems: Comprehensive ROS is negative, except as noted in HPI. ED EXAM, GENERAL - Physical Exam Exam: See Below Exam Limited By: No Limitations General Appearance: Alert, WD/WN, No Apparent Distress Extremities: Normal Inspection, Normal Range of Motion, No Pedal Edema Neurological: Alert, Oriented, CN II-XII Intact, Normal Cognition, Normal Gait, Normal Reflexes, No Motor/Sensory Deficits Psychiatric: Normal Affect, Normal Mood Skin Exam: Warm, Dry, Intact, Normal Color, No Rash Course - Orders/Labs/Meds Meds: Medications Discontinued Medications Generic Name Dose Route Start Last Admin Trade Name Farazq PRN Reason Stop Dose Admin Ketorolac Tromethamine 30 mg 07/19/21 19:52 Ketorolac 30 Mg/Ml Sdv IM 07/19/21 19:53 ONETIME ONE Departure - Departure Time of Disposition: 20:15 Disposition: Home, Self-Care 01 Clinical Impression: Chronic low back pain - Discharge Information Instructions: Chronic Back Pain, [id number] Referrals: Bernardo Powell MD [Primary Care Provider] - Additional Instructions: Continue with current medications Follow-up with Dr. Powell as needed. - Problem List Review Problem List Initiated/Reviewed/Updated: Yes - Assessment/Plan Plan: Discussed case with patient. She was given toradol 30mg IM. We are unable to give the patient any opiate based pain medication for chronic pain. Advised to follow-up with her PCP and pain management.
[2021-07-20 03:48] VITALS: BP 155/102; PULSE 110
== END 2021-07-19 20:14 | disposition home or self-care (01) ==
LOC: VM.ED 18:55
DX: G89.29 Other chronic pain (principal); M54.50 Low back pain, unspecified; I10 Essential (primary) hypertension; Z88.0 Allergy status to penicillin; Z79.82 Long term (current) use of aspirin; Z79.899 Other long term (current) drug therapy
CPT/HCPCS: 96372; 99283; J1885

== ENCOUNTER 2021-07-20 04:50 | Emergency (ER) | payer MEDICAID ==
[2021-07-20] MEDS ORDERED: Orphenadrine 60 MG/2 ML Inj IM ONE (05:04)
[2021-07-20] MEDS ORDERED: Ketorolac 30 MG/ML SDV IM ONE (05:05)
[2021-07-20 05:12] VITALS: BP 145/101; PULSE 106
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
== END 2021-07-20 05:30 | disposition home or self-care (01) ==
LOC: VM.ED 04:50
DX: G89.29 Other chronic pain (principal); M54.6 Pain in thoracic spine; I10 Essential (primary) hypertension; Z88.0 Allergy status to penicillin; Z79.899 Other long term (current) drug therapy
CPT/HCPCS: 96372; 99283; J1885; J2360

== ENCOUNTER 2021-07-21 04:30 | Emergency (ER) | payer MEDICAID, OTHER ==
[2021-07-21 04:58] VITALS: BP 138/92; PULSE 101
--- NOTE | 2021-07-21 06:56 | EDM.PDOC ---
ED HPI GENERAL MEDICAL PROBLEM - General Chief Complaint: Behavioral/Psych Stated Complaint: manic, upper back pain Time Seen by Provider: 07/21/21 04:40 Source of Information: Reports: Patient History Limitations: Reports: No Limitations - History of Present Illness INITIAL COMMENTS - FREE TEXT/NARRATIVE: Pt. presents to ER with complaints of continued back pain. She has been in twice before in the last 36 hours. She is also concerned about her blood pressure. Pt. states that she is following up with [facility] pain management later this week. She denies any fever or chills. No saddle anesthesia. She denies any chest pain, shortness of breath, nausea, vomiting, or headache. Onset: Today Onset Date: 07/21/21 Upper Back Pain Score (Numeric/FACES): 10 - Related Data Allergies Allergy/AdvReac Type Severity Reaction Status Date / Time amoxicillin Allergy Rash Verified 07/20/21 05:12 Penicillins Allergy Rash Verified 07/20/21 05:12 Home Meds: Home Meds ARIPiprazole [Abilify] 2 mg PO DAILY 07/20/21 [History] Baclofen 10 mg PO TID 07/20/21 [History] Butalb/Acetaminophen/Caffeine [Fioricet 50-300-40 mg Capsule] 1 cap PO DAILY PRN 07/20/21 [History] Cyanocobalamin (Vitamin B-12) [B-12] 1,000 mcg PO DAILY 07/20/21 [History] Desvenlafaxine [Desvenlafaxine ER] 100 mg PO DAILY 07/20/21 [History] Ferrous Sulfate 325 mg PO DAILY 07/20/21 [History] Ibuprofen 800 mg PO Q6H PRN 07/20/21 [History] SUMAtriptan succinate [Imitrex] 100 mg PO Q2HR PRN MDD 200 07/20/21 [History] lisinopriL [Lisinopril] 20 mg PO DAILY 07/20/21 [History] Past Medical History Cardiovascular History: Reports: Hypertension Respiratory History: Reports: None Genitourinary History: Reports: Renal Calculus, UTI, 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: Musculoskeletal History: Reports: Back Pain, Chronic, Fracture, Other (See Below) Other Musculoskeletal History: Post COVID syndrome, chronic pain, extremities since having COVID, neuropathy like pain Neurological History: Reports: Migraines Other Neuro History: gets Botox injections Psychiatric History: Reports: Anxiety, Bipolar, Depression, PTSD Dermatologic History: Reports: Eczema - Past Surgical History HEENT Surgical History: Reports: Oral Surgery GI Surgical History: Reports: Cholecystectomy Female Surgical History: Reports: Lithotripsy/ESWL Other Female Surgeries/Procedures: RENAL STENT PLACED IN MAY Social & Family History - Family History Family Medical History: No Pertinent Family History Cardiac: Reports: [place] Other Cardiac Family History: FATHER HAD [place] 2003 Respiratory: Reports: COPD Other Respiratory Family Hisory: FATHER Neurological: Reports: MS Other Neurological Family History: FATHER - Tobacco Use Tobacco Use Status *Q: Current Every Day Tobacco User Years of Tobacco use: 5 Packs/Tins Daily: 2 - Caffeine Use Caffeine Use: Reports: None - Recreational Drug Use Recreational Drug Use: Yes Drug Use in Last 12 Months: Yes Recreational Drug Type: Reports: Cocaine, Marijuana/Hashish - Living Situation & Occupation Living situation: Reports: Single Occupation: Unemployed ED ROS GENERAL - Review of Systems Review Of Systems: Comprehensive ROS is negative, except as noted in HPI. ED EXAM, GENERAL - Physical Exam Exam: See Below Exam Limited By: No Limitations General Appearance: Alert, WD/WN, No Apparent Distress Eye Exam: Bilateral Eye: EOMI, PERRL Back Exam: Muscle Spasm, Paraspinal Tenderness, Vertebral Tenderness Course - Vital Signs Last Recorded V/S: Last Vital Signs Temp 36.6 C 07/21/21 04:35 Pulse 101 H 07/21/21 04:35 Resp 18 07/21/21 04:35 BP 138/92 H 07/21/21 04:35 Pulse Ox 97 07/21/21 04:35 Departure - Departure Time of Disposition: 05:00 Disposition: Home, Self-Care 01 Clinical Impression: Chronic back pain - Discharge Information Instructions: Chronic Knee Pain, Adult, Hypertension, Adult Forms: ED Department Discharge Additional Instructions: Continue with lisinopril at current dose. Follow-up with Dr. Powell this week. Sepsis Event Note (ED) - Focused Exam Vital Signs: Vital Signs Temp Pulse Resp BP Pulse Ox 07/21/21 04:35 36.6 C 101 H 18 138/92 H 97 - Problem List Review Problem List Initiated/Reviewed/Updated: Yes - Assessment/Plan Plan: Follow-up with Dr. Andre HENRY. She was not given further IM toradol as this can cause renal insufficiency. Continue with lisinopril for blood pressure.
== END 2021-07-21 05:00 | disposition home or self-care (01) ==
LOC: VM.ED 04:30
DX: M54.6 Pain in thoracic spine (principal); G89.29 Other chronic pain; I10 Essential (primary) hypertension; F17.210 Nicotine dependence, cigarettes, uncomplicated; Z88.0 Allergy status to penicillin; Z79.899 Other long term (current) drug therapy; Z90.49 Acquired absence of other specified parts of digestive tract
CPT/HCPCS: 99283

== ENCOUNTER 2021-07-22 09:57 | Emergency (ER) | payer MEDICAID ==
[2021-07-22 10:23] VITALS: BP 129/71; PULSE 119
--- NOTE | 2021-07-22 11:01 | EDM.PDOCBH ---
ED HPI GENERAL MEDICAL PROBLEM - General Chief Complaint: Behavioral/Psych Stated Complaint: MENTAL HEALTH Time Seen by Provider: 07/22/21 10:03 Source of Information: Reports: Patient, Significant Other History Limitations: Reports: No Limitations - History of Present Illness INITIAL COMMENTS - FREE TEXT/NARRATIVE: Patient brought to ED by friend with complaints of wanting ativan. Has xanax at home that is ineffective. Has been seen multiple times over the last several days with multiple complaints. Sees Dr. Powell for psych. Recently discharged from [facility] with med changes. Not suicidal or homicidal, no plans of self harm. ROS and HPI difficult to obtain due to multiple thought threads. States she is having a sinus infection, then complaints of MS, told her friend that is here she was needing to walk her baby, though she does not have one at home with her. Somewhat confused but yet coherent at times. Onset: Gradual Onset Date: 07/20/21 Duration: Getting Worse, Intermittent Associated Symptoms: Reports: No Other Symptoms - Related Data Allergies Allergy/AdvReac Type Severity Reaction Status Date / Time amoxicillin Allergy Rash Verified 07/20/21 05:12 Penicillins Allergy Rash Verified 07/20/21 05:12 Home Meds: Home Meds ARIPiprazole [Abilify] 2 mg PO DAILY 07/20/21 [History] Baclofen 10 mg PO TID 07/20/21 [History] Butalb/Acetaminophen/Caffeine [Fioricet 50-300-40 mg Capsule] 1 cap PO DAILY PRN 07/20/21 [History] Cyanocobalamin (Vitamin B-12) [B-12] 1,000 mcg PO DAILY 07/20/21 [History] Desvenlafaxine [Desvenlafaxine ER] 100 mg PO DAILY 07/20/21 [History] Ferrous Sulfate 325 mg PO DAILY 07/20/21 [History] Ibuprofen 800 mg PO Q6H PRN 07/20/21 [History] SUMAtriptan succinate [Imitrex] 100 mg PO Q2HR PRN MDD 200 07/20/21 [History] lisinopriL [Lisinopril] 20 mg PO DAILY 07/20/21 [History] Past Medical History Cardiovascular History: Reports: Hypertension Respiratory History: Reports: None Genitourinary History: Reports: Renal Calculus, UTI, Recurrent [employer] History: Reports: Musculoskeletal History: Reports: Back Pain, Chronic, Fracture, Other (See Below) Other Musculoskeletal History: Post COVID syndrome, chronic pain, extremities since having COVID, neuropathy like pain Neurological History: Reports: Migraines Other Neuro History: gets Botox injections Psychiatric History: Reports: Anxiety, Bipolar, Depression, PTSD Dermatologic History: Reports: Eczema - Past Surgical History HEENT Surgical History: Reports: Oral Surgery GI Surgical History: Reports: Cholecystectomy Female Surgical History: Reports: Lithotripsy/ESWL Other Female Surgeries/Procedures: RENAL STENT PLACED IN MAY Social & Family History - Family History Family Medical History: No Pertinent Family History Cardiac: Reports: [place] Other Cardiac Family History: FATHER HAD [place] 2003 Respiratory: Reports: COPD Other Respiratory Family Hisory: FATHER Neurological: Reports: MS Other Neurological Family History: FATHER - Tobacco Use Tobacco Use Status *Q: Current Every Day Tobacco User Years of Tobacco use: 0 Packs/Tins Daily: 2 - Caffeine Use Caffeine Use: Reports: None - Recreational Drug Use Recreational Drug Use: No - Living Situation & Occupation Living situation: Reports: Single Occupation: Unemployed ED ROS GENERAL - Review of Systems Review Of Systems: See Below Constitutional: Reports: No Symptoms HEENT: Reports: No Symptoms Respiratory: Reports: No Symptoms Cardiovascular: Reports: No Symptoms Endocrine: Reports: No Symptoms GI/Abdominal: Reports: No Symptoms : Reports: No Symptoms Musculoskeletal: Reports: No Symptoms Skin: Reports: No Symptoms Neurological: Reports: No Symptoms Psychiatric: Reports: Anxiety, Confusion, Hallucinations Hematologic/Lymphatic: Reports: No Symptoms Immunologic: Reports: No Symptoms ED EXAM, BEHAVIORAL HEALTH - Physical Exam Exam: See Below Exam Limited By: No Limitations General Appearance: Alert, WD/WN, No Apparent Distress Eye Exam: Bilateral Eye: EOMI, PERRL Ears: Normal TMs Throat/Mouth: Normal Inspection, Normal Lips, Normal Teeth, Normal Gums, Normal Oropharynx, Normal Voice, No Airway Compromise Head: Atraumatic, Normocephalic Neck: Normal Inspection, Supple, Non-Tender, Full Range of Motion Respiratory/Chest: No Respiratory Distress, Lungs Clear, Normal Breath Sounds, No Accessory Muscle Use, Chest Non-Tender Cardiovascular: Normal Peripheral Pulses, Regular Rate, Rhythm, No Edema, No Gallop, No JVD, No Murmur, No Rub GI/Abdominal: Normal Bowel Sounds, Soft, Non-Tender, No Organomegaly, No Distention, No Abnormal Bruit, No Mass Back Exam: Normal Inspection, Full Range of Motion, NT Extremities: Normal Inspection, Normal Range of Motion, Non-Tender, Normal Capillary Refill, No Pedal Edema Neurological: Alert, Normal Mood/Affect, CN II-XII Intact, Normal Cognition, Normal Gait, Normal Reflexes, No Motor/Sensory Deficits, Oriented x 3 Psychiatric: Alert, Normal Affect, Restless, Flight of Ideas, Grandiose Thoughts, Paranoid Thoughts. No: Homicidal Thoughts, Suicidal Plan, Suicidal Thoughts Skin Exam: Warm, Dry, Intact, Normal color COURSE, BEHAVIORAL HEALTH COMP - Course Vital Signs: Last Vital Signs Temp 37.3 C 07/22/21 10:00 Pulse 119 H 07/22/21 10:00 Resp 16 07/22/21 10:00 BP 129/71 07/22/21 10:00 Pulse Ox 96 07/22/21 10:00 Departure - Departure Time of Disposition: 11:50 Disposition: Against Medical Advice 07 Condition: Fair Clinical Impression: Hallucinations, Anxiety, Schizophrenia - Discharge Information *PRESCRIPTION DRUG MONITORING PROGRAM REVIEWED*: Not Applicable *COPY OF PRESCRIPTION DRUG MONITORING REPORT IN PATIENT MONICA: Not Applicable Sepsis Event Note (ED) - Focused Exam Vital Signs: Vital Signs Temp Pulse Resp BP Pulse Ox 07/22/21 10:00 37.3 C 119 H 16 129/71 96 - Problem List & Annotations (1) Anxiety SNOMED Code(s): 75178407 Code(s): F41.9 - ANXIETY DISORDER, UNSPECIFIED Status: Acute (2) Hallucinations SNOMED Code(s): 7257820 Code(s): R44.3 - HALLUCINATIONS, UNSPECIFIED Status: Acute - Assessment/Plan Assessment:: anxiety hallucinations Plan: Screener from [facility] did call to visit with patient. He put her on hold to take another call and she decided to leave and stated she didn't have time for this. Left AMA. Lab work non contributory. Advised to follow up with PCP and psych to determine if medication changes are needed.
[2021-07-22 11:41] LABS: ANION GAP 15.3 mmol/L (5-15); CHLORIDE,CL 106 mmol/L (98-107); SODIUM,NA 141 mmol/L (136-145)
== END 2021-07-22 11:50 | disposition left against medical advice (07) ==
LOC: VM.ED 09:57
DX: F41.9 Anxiety disorder, unspecified (principal); F20.9 Schizophrenia, unspecified; R44.3 Hallucinations, unspecified; I10 Essential (primary) hypertension; Z72.0 Tobacco use; Z88.0 Allergy status to penicillin
CPT/HCPCS: 36415; 80053; 83735; 85025; 99284

== ENCOUNTER 2021-11-10 01:35 | Emergency (ER) | payer MEDICAID ==
[2021-11-10] MEDS ORDERED: Sodium Chloride 0.9% 10 ML Syringe FLUSH PRN (01:45)
[2021-11-10] MEDS ORDERED: Sodium Chloride 0.9% 1,000 ML IV SCH (02:00)
[2021-11-10 02:19] LABS: PTT,PARTIAL THROMBOPLSTIN TIME 25.6 SEC (25.6-32.8)
[2021-11-10 02:23] LABS: BARBITURATE SCREEN,URINE NEGATIVE (NEGATIVE)
[2021-11-10 02:24] LABS: BENZODIAZEPINES SCREEN,URINE POSITIVE (NEGATIVE); BUPRENORPHINE SCREEN,URINE NEGATIVE (NEGATIVE); METHAMPHETAMINE SCREEN, URINE NEGATIVE (NEGATIVE); THC SCREEN,URINE 50 NG/ML NEGATIVE (NEGATIVE)
[2021-11-10 02:27] VITALS: PULSE 75
[2021-11-10 02:34] LABS: CHLORIDE,CL 101 mmol/L (98-107); SODIUM,NA 137 mmol/L (136-145)
[2021-11-10 02:55] LABS: ACETAMINOPHEN 0 ug/ml (10-30); ANION GAP 8.8 mmol/L (5-15)
[2021-11-10] MEDS ORDERED: Sodium Chloride 0.9% 1,000 ML IV ONE (03:08)
[2021-11-10 04:13] VITALS: BP 130/77
== END 2021-11-10 04:05 | disposition short-term general hospital (02) ==
LOC: VM.ED 01:35
DX: T56.892A Toxic effect of other metals, intentional self-harm, initial encounter (principal); R82.71 Bacteriuria; I10 Essential (primary) hypertension; Z88.0 Allergy status to penicillin; Z79.899 Other long term (current) drug therapy; Z20.822 Contact with and (suspected) exposure to COVID-19
CPT/HCPCS: 80053; 80143; 80305-QW; 80307; 81001; 81025; 83735; 84100; 84443; 84484; 85025; 85610; 85730; 87086; 93005; 93010; 99284; 99285-25; J7030; U0002